=== PATIENT | male | born 1960 | race Caucasian/White ===

== ENCOUNTER 2017-07-01 12:49 | Observation (INO) | payer OTHER ==
[~2017-07-01] VITALS: Ht 175.3 cm; Wt 97.7 kg
--- NOTE | ~2017-07-01 | OP ---
PATIENT NAME: ANGEL SEGURA MEDICAL RECORD: [id number] :60 LOCATION:[id number] ADMISSION DATE:07/01/17 SURGEON: VLADIMIR TORRES MD DATE OF OPERATION: 07/02/2017 PREOPERATIVE DIAGNOSIS: Far lateral disc herniation L4-L5, left. POSTOPERATIVE DIAGNOSIS: Far lateral disc herniation L4-L5, left with severe L4 radiculopathy. BRIEF HISTORY: Mr. Segura is a 56-year-old male with sudden worsening of weakness and pain in his left lower extremity in the L4 dermatomal distribution at less than 24 hours prior to admission, he rated his pain as 10/10, was unresponsive to IV Decadron and morphine IV [employer] W[employer] TESTER overnight. Followup MRI showed a large far lateral disc herniation at L4-L5 on the left on 07/02/2017, he was admitted on July 01. Due to weakness of the left lower extremity and 10/10, he was taken to the operating room for far lateral discectomy and laminectomy at L4-L5, left. PROCEDURE: Left L4-L5 laminectomy with foraminotomy and discectomy with METRx retractor. SURGEON: Vladimir Torres MD DESCRIPTION OF TECHNIQUE: After induction of general endotracheal anesthesia, the patient was rolled prone on a Avery frame. Lumbar spine was prepped and draped in the usual sterile fashion. Fluoroscopic x-ray and spinal needle localized at the L4-L5 interspace on the left side. A stab incision was carried out with a #11 blade and a series of dilators was used to advance the METRx retractor at the L4-L5 interspace on the left side. Level was confirmed with fluoroscopic x-ray. A microscope and Midas Kevin drill were used to perform a laminectomy and medial facetectomy and foraminotomy at L4-L5 on the left. Hypertrophied ligamentum flavum was removed with Cloward rongeurs. Following this, there was an obvious far lateral disc herniation compressing the L4 nerve root up against the L4 pedicle. This was removed in piecemeal fashion. Disc material was removed from the disc space. Following this, the nerve root had decompressed well. Meticulous hemostasis was maintained throughout the wound. Wound was irrigated with copious amounts of Ancef irrigant solution. The fascia was closed with 2-0 Vicryl suture, subdermal layer was closed with 3-0 Vicryl suture. The skin was closed with vani. A sterile dressing was applied to the wound. The patient was awakened in good condition and taken to recovery. All counts were reported as correct. Estimated blood loss was minimal. TRANSINT:[id number] Voice Confirmation ID: [id number] DOCUMENT ID: [id number] OPERATIVE REPORT [id number] ANGEL SEGURA JOHN MD at 1134 CC: [id number] DICTATION DATE: 07/02/17 165 [facility]: 07/02/17 1844 DIS IN 07/03/17 [place] [id number] [place] [id number]
[2017-07-01 14:47] LABS: APPEARANCE CLEAR (CLEAR); BILIRUBIN NEGATIVE (NEGATIVE); COLOR YELLOW (YELLOW); GLUCOSE NEGATIVE (NEGATIVE); KETONE NEGATIVE (NEGATIVE); NITRITE NEGATIVE (NEGATIVE); PROTEIN NEGATIVE (NEGATIVE); SPECIFIC GRAVITY 1.005 (1.005-1.020); UROBILINOGEN NORMAL (NORMAL)
[2017-07-01 14:51] LABS: BACTERIA FEW /hpf (NONE SEEN); RED CELLS - URINE 0-5 /hpf (0-5); WHITE CELLS - URINE 0-5 /hpf (0-5)
[2017-07-01] MEDS ORDERED: MOBIC7.5 MG PO (18:29)
[2017-07-01] MEDS ORDERED: NORCO 7.5/325 T1 TA1 PO (18:29)
[2017-07-01] MEDS ORDERED: LIPITOR10 MG PO (18:30)
[2017-07-01] MEDS ORDERED: CYCLOBENZAPRINE10 MG PO (18:30)
[2017-07-01] MEDS ORDERED: GABAPENTIN100 MG PO (18:31)
[2017-07-01 20:22] LABS: BASOPHILS 0.1 % (0-2); EOSINOPHILS 0 % (0-7); HEMATOCRIT 48.4 % (42.0-54.0); HEMOGLOBIN 16.8 g/dL (13.5-17.5); IMMATURE GRANULOCYTES 0.2 % (0-5); LYMPHOCYTES 5.3 % (15-50); MCH 30.4 pg (26.0-34.0); MCHC 34.7 g/dL (31.0-37.0); MCV 87.7 fL (80.0-100.0); MEAN PLATELET VOLUME 9.9 fL (7.4-10.4); MONOCYTES 0.4 % (2-11); PLATELET COUNT 200 10x3/uL (130-400); RBC 5.52 10x6/uL (4.20-6.10); RDW 13.2 % (11.5-14.5); WBC 12.9 10x3/uL (4.8-10.8)
[2017-07-01 20:30] VITALS: BP 157/80
[2017-07-01 20:32] LABS: ALBUMIN 3.9 g/dL (3.4-5.0); ALKALINE PHOSPHATASE 68 U/L (46-116); ALT (SGPT) 21 U/L (10-68); BILIRUBIN - TOTAL 0.58 mg/dL (0.2-1.3); CALC OSMOLALITY 273 mosm/kg (275-300); CALCIUM 9.1 mg/dL (8.5-10.1); CARBON DIOXIDE 28.3 mmol/L (21.0-32.0); CHLORIDE - SERUM 100 mmol/L (98-107); GLUCOSE 201 mg/dL (74-106); POTASSIUM - SERUM 4.1 mmol/L (3.5-5.1); PROTEIN - SERUM 7.5 g/dL (6.4-8.2); SODIUM 134 mmol/L (136-145); UREA NITROGEN 13 mg/dL (7-18); eGFR NON AFRICAN AMERICAN 82 mL/min (90-120)
[2017-07-02 01:01] VITALS: BP 115/81
[2017-07-02 02:27] VITALS: BP 119/87; Ht 175.3 cm; Wt 97.7 kg
[2017-07-02 04:56] LABS: BASOPHILS 0.1 % (0-2); EOSINOPHILS 0 % (0-7); HEMATOCRIT 47.7 % (42.0-54.0); HEMOGLOBIN 16.8 g/dL (13.5-17.5); IMMATURE GRANULOCYTES 0.3 % (0-5); LYMPHOCYTES 9.4 % (15-50); MCH 30.6 pg (26.0-34.0); MCHC 35.2 g/dL (31.0-37.0); MCV 86.9 fL (80.0-100.0); MEAN PLATELET VOLUME 10.1 fL (7.4-10.4); MONOCYTES 0.7 % (2-11); NEUTROPHILS 89.5 % (40-80); PLATELET COUNT 208 10x3/uL (130-400); RBC 5.49 10x6/uL (4.20-6.10); RDW 13.1 % (11.5-14.5)
[2017-07-02 05:02] VITALS: BP 118/70
[2017-07-02 05:26] LABS: ALBUMIN 3.7 g/dL (3.4-5.0); ALKALINE PHOSPHATASE 63 U/L (46-116); ALT (SGPT) 24 U/L (10-68); BILIRUBIN - TOTAL 0.51 mg/dL (0.2-1.3); CALC OSMOLALITY 273 mosm/kg (275-300); CALCIUM 8.8 mg/dL (8.5-10.1); CARBON DIOXIDE 24.8 mmol/L (21.0-32.0); CHLORIDE - SERUM 100 mmol/L (98-107); GLUCOSE 184 mg/dL (74-106); PROTEIN - SERUM 7.4 g/dL (6.4-8.2); SODIUM 134 mmol/L (136-145); UREA NITROGEN 15 mg/dL (7-18); eGFR NON AFRICAN AMERICAN 82 mL/min (90-120)
[2017-07-02 07:51] VITALS: BP 150/78
[2017-07-02 11:27] VITALS: BP 107/60
[2017-07-02 17:56] VITALS: BP 148/85
[2017-07-03] VITALS: BP 108/62
[2017-07-03 06:00] VITALS: BP 109/79
[2017-07-03 06:08] LABS: HEMATOCRIT 43.9 % (42.0-54.0); HEMOGLOBIN 15.2 g/dL (13.5-17.5); MCH 30.6 pg (26.0-34.0); MCHC 34.6 g/dL (31.0-37.0); MCV 88.5 fL (80.0-100.0); MEAN PLATELET VOLUME 10.3 fL (7.4-10.4); PLATELET COUNT 216 10x3/uL (130-400); RBC 4.96 10x6/uL (4.20-6.10); RDW 13.5 % (11.5-14.5)
[2017-07-03 06:33] LABS: ALBUMIN 3.4 g/dL (3.4-5.0); ALKALINE PHOSPHATASE 54 U/L (46-116); ALT (SGPT) 19 U/L (10-68); CALC OSMOLALITY 278 mosm/kg (275-300); CALCIUM 8.7 mg/dL (8.5-10.1); CARBON DIOXIDE 26.1 mmol/L (21.0-32.0); CHLORIDE - SERUM 103 mmol/L (98-107); GLUCOSE 155 mg/dL (74-106); POTASSIUM - SERUM 4.6 mmol/L (3.5-5.1); PROTEIN - SERUM 6.7 g/dL (6.4-8.2); SODIUM 136 mmol/L (136-145); eGFR NON AFRICAN AMERICAN 82 mL/min (90-120)
[2017-07-03 06:34] LABS: UREA NITROGEN 23 mg/dL (7-18)
[2017-07-03 06:51] LABS: LYMPHOCYTES 8 % (15-50); MONOCYTES 1 % (2-11); NEUTROPHILS 91 % (40-80); PLATELET ESTIMATE NORMAL
[2017-07-03 08:08] VITALS: BP 126/78
[2017-07-03 11:52] VITALS: BP 111/61
[2017-07-03 15:29] VITALS: BP 101/70
== END 2017-07-03 16:16 | disposition home or self-care (01) ==
LOC: D.ER 12:49 → D.EDHOLD 15:22 → OBSVTIME 15:23 → D.MS 15:57
PROVIDERS: Family Medicine; Family Medicine Adult Medicine
DX: M51.16 Intervertebral disc disorders with radiculopathy, lumbar region (principal); F17.200 Nicotine dependence, unspecified, uncomplicated